=== PATIENT | female | born 1935 | race Caucasian/White ===

== ENCOUNTER → 2017-12-03 | Outpatient (CLI) | payer MEDICARE, BC | END | disposition home or self-care (01) | LOC: HKI 10:22 | DX: M17.12 Unilateral primary osteoarthritis, left knee (principal); Z95.2 Presence of prosthetic heart valve; Z79.82 Long term (current) use of aspirin; Z96.651 Presence of right artificial knee joint; Z96.642 Presence of left artificial hip joint | CPT/HCPCS: 73562; 73562-50 ==

== ENCOUNTER → 2017-12-17 | Outpatient (CLI) | payer MEDICARE, BC | END | disposition home or self-care (01) | LOC: HKI 11:38 | DX: Z01.818 Encounter for other preprocedural examination (principal); M17.12 Unilateral primary osteoarthritis, left knee | CPT/HCPCS: G0463 ==